=== PATIENT | female | born 1950 | race African-American/Black ===

== ENCOUNTER 2024-10-10 15:00 | Emergency (ER) | payer OTHER, MEDICAID ==
[~2024-10-10] VITALS: Ht 152.4 cm; Wt 63.5 kg
[2024-10-10 15:01] VITALS: O2SAT 99
[2024-10-10 15:17] VITALS: BP 251/102; PULSE 76; RESP 14; TEMP 36.9; O2SAT 98
== END 2024-10-10 18:18 | disposition left against medical advice (07) ==
LOC: ER 15:00
DX: K08.89 Other specified disorders of teeth and supporting structures (principal); E78.00 Pure hypercholesterolemia, unspecified; I10 Essential (primary) hypertension; Z53.21 Procedure and treatment not carried out due to patient leaving prior to being seen by health care provider